=== PATIENT | female | born 1955 | race Caucasian/White ===

== ENCOUNTER 2016-07-10 22:28 | Emergency (ER) | payer MEDICAID ==
[~2016-07-10] VITALS: Ht 152.4 cm; Wt 68.2 kg
[~2016-07-10 22:28] MED LIST: CIPR250S4 PO
[2016-07-11] MEDS ORDERED: KETOROLAC TROMETHAMINE 60 MG/2 ML VIAL IM ONE (00:15)
[2016-07-11] MEDS ORDERED: DiphenhydrAMINE HCL 25 MG CAPSULE PO ONE (01:15)
[2016-07-11] MEDS ORDERED: OxyCODONE HCL/ACETAMINOPHEN 5-325 MG TABLET PO ONE (01:15)
[2016-07-11 03:25] VITALS: BP 137/88
== END 2016-07-11 03:35 | disposition home or self-care (01) ==
LOC: EMS 22:31
DX: S13.4XXA Sprain of ligaments of cervical spine, initial encounter (principal); S39.012A Strain of muscle, fascia and tendon of lower back, initial encounter; S80.01XA Contusion of right knee, initial encounter; S50.01XA Contusion of right elbow, initial encounter; F17.210 Nicotine dependence, cigarettes, uncomplicated; V43.52XA Car driver injured in collision with other type car in traffic accident, initial encounter; Y93.89 Activity, other specified; Y92.89 Other specified places as the place of occurrence of the external cause; Y99.8 Other external cause status
CPT/HCPCS: 71010; 72050; 72070; 72100; 72170; 73080; 73562; 96372; 99284; 99406; J1885